=== PATIENT | male | born 2000 | race African-American/Black ===

== ENCOUNTER 2024-08-30 05:46 | Emergency (ER) | payer SELFPAY ==
[2024-08-30] MEDS ORDERED: Lidocaine 1% PF 5 ML VIAL ONE (06:33)
[2024-08-30] MEDS ORDERED: Azithromycin 250 MG TAB ONE (06:33)
[2024-08-30] MEDS ORDERED: cefTRIAXone (ROCEPHIN) 500 MG VIAL ONE (06:34)
== END 2024-08-30 06:54 | disposition home or self-care (01) ==
LOC: ERS 05:46
DX: N34.2 Other urethritis (principal)
CPT/HCPCS: 96372; 99282; J0696